=== PATIENT | male | born 1955 | race Caucasian/White ===

== ENCOUNTER 2017-04-06 03:23 | Inpatient (IN) | payer OTHER ==
[~2017-04-06] VITALS: Ht 190.5 cm; Wt 132.4 kg
[~2017-04-06 03:23] MED LIST: ALDACTONE25 MG PO; AMIODARONE HCL200 M1 PO; ASPIRIN81 M4 PO; ATORVASTATIN CA40 M1 PO; ATORVASTATIN CA80 M1 PO; CARDIZEM CD180 MG PO; COLACE100 M1 PO; ELIQUIS5 M1 PO; HYDRALAZINE HCL50 MG PO; LISINOPRIL HCTZ1 TAB PO; LOSARTAN POTAS100 M1 PO; LOSARTAN POTAS100 MG PO; MEDROL DOSEPAK1 PAC PO; OMEPRAZOLE D/R20 MG PO; PACERONE200 M1 PO; PERCOCET 325 MG1 TA2 PO; PERCOCET 5-3251 EACH PO; SPIRONOLACTONE1 EACH PO; SPIRONOLACTONE25 MG PO; TOPROL XL 25MG25 MG PO; TOPROL XL100 M1 PO; TOPROL XL50 M1 PO; VALIUM5 M1 PO; VALIUM5 M2 PO; ZOCOR40 M1 PO
--- NOTE | 2017-04-06 11:12 | Admission Core Measures ---
Acute Coronary Syndrome (CM) ACS Core Measures Acute Coronary Syndrome Diagnosis No Congestive Heart Failure (NEW) CHF Core Measures Congestive Heart Failure Diagnosis No Cerebrovascular Accident (NEW) CVA Core Measures CVA/TIA Diagnosis No Venous Thromboembolism VTE Core [place] (View Protocol) VTE Risk Factors Surgery No Mechanical VTE Prophylaxis d/t N/A MechProphylax Ordered No VTE Pharm Prophylaxis d/t NA PharmProphylax ordered Problem List As ranked by this Provider includes Assessment & Plan 1. Status post total knee replacement, right HOME MEDS Home Med List Amiodarone (Cordarone) 200 MG TAB 1 TAB PO DAILY AFIB (Reported) Apixaban (Eliquis) 5 MG TABLET 5 MG PO BID afib Aspirin (Aspirin*) 81 MG TAB.CHEW 81 MG PO DAILY heart Atorvastatin Calcium 40 MG TABLET 1 TAB PO DAILY CHOLESTEROL (Reported) Metoprolol Succ XL (Toprol XL) 100 MG TAB.ER.24H 100 MG PO DAILY AFIB Omeprazole 20 MG ECC 1 CAP PO DAILY GI (Reported) Spironolact/Hydrochlorothiazid (Spironolactone-Hctz 25-25 Tab) 25 MG-25 MG TABLET 1 TAB PO DAILY BP (Reported)
--- NOTE | 2017-04-06 11:19 | Surgical Discharge Summary ---
Visit Information Visit Dates Admission Date: 04/06/17 Discharge Date: 04/09/17 History of Present Illness Chief Complaint: Join pain - See H and P Medical History Neurological: DISCECTOMY LUMBAR LAMINECTOMY Cardiovascular: hypertension, hyperlipidemia Respiratory: obstructive sleep apnea Gastrointestinal: GERD, COLON RESECTION Musculoskeletal: L KNEE REPLACEMENT L FOOT DROP History of MRSA: No History of VRE: No History of CDIFF: No Influenza Vaccine: 01/20/06 Surgical History Pertinent Surgical History: non-contributory Family History Relations & Conditions If Any: FATHER FH: myocardial infarction, Onset: 60+. FH: prostate cancer Psychosocial History Who Do You Live With? Spouse Services at Home: None What is Your Primary Language? Georgian Review of Systems: See H and P Hospital Course Course Attending Physician: Reshma LUNANikita Primary Care Physician: Keenan LUNA,[facility] Course: Pt was admitted on 04/06 after undergoing a right tkr by Dr Justice. He tolerated the procedure well and was brought to the recovery room in good condition. Over the next couple of days he worked with PT and was WBAT. His pain was managed with oral pain medication and he was able to void spontaneously. He was deemed stable for discharge home with services. Allergies: Coded Allergies: ampicillin (From UNASYN) (UNKNOWN 04/03/17) PER MICCI IN SDS ON 04/03/17: PT NOT SURE OF RXN TO UNASYN. RXN WAS MILD AND NOT ANAPHYLAXIS (SJS) sulbactam (From UNASYN) (UNKNOWN 04/03/17) PER MICCI IN SDS: RXN WAS NOT ANAPHYLAXIS (SJS) Significant Procedures: R TKR -see operative report Disposition Summary Disposition Principal Diagnosis: OA/DJD Additional Diagnosis: a fib, htn Discharge Disposition: home health services Discharge Instructions General Discharge Information Code Status: Full Code Patient's Diet: Heart Healthy Patient's Activity: WBAT Follow-Up Instructions/Appts: See pre printed sheet Medications at Discharge Discharge Medications: Continue taking these medications: Omeprazole (Omeprazole) 20 MG ECC 1 Capsule ORAL DAILY Qty = 90 Metoprolol Succ XL (Toprol XL) 100 MG TAB.ER.24H 100 Milligram ORAL DAILY Qty = 30 Comments: Last Taken: 01/21/16 Time: 9:30AM Amiodarone (Cordarone) 200 MG TAB 1 Tablet ORAL DAILY Spironolact/Hydrochlorothiazid (Spironolactone-Hctz 25-25 Tab) 25 MG-25 MG TABLET 1 Tablet ORAL DAILY Atorvastatin Calcium (Atorvastatin Calcium) 40 MG TABLET 1 Tablet ORAL DAILY Instructions: WITH DINNER Apixaban (Eliquis) 5 MG TABLET 5 Milligram ORAL TWICE DAILY Qty = 30 Comments: DECREASE DOSE TO 2.5 MG TWICE DAILY (ONE HALF TAB) FOR ONE WEEK THROUGH , THEN RESUME NORMAL DOSE OF 5MG TWICE DAILY ON 04/14. This prescription has been renewed Start taking the following new medications: Docusate Sodium (Colace) 100 MG CAPSULE 1 Capsule ORAL TWICE DAILY Qty = 14 No Refills Polyethylene Glycol 3350 (Miralax) 17 GRAM POWD.PACK 1 Packet ORAL DAILY Qty = 7 No Refills Instructions: dissolve in water Oxycodone HCl/Acetaminophen (Percocet 5-325 MG Tablet) 5 MG-325 MG TABLET 1-2 Tablet ORAL EVERY 4-6 HOURS as needed for PAIN Qty = 36 No Refills The following medications have been changed: Old: Aspirin (Aspirin*) 81 MG TAB.CHEW 81 Milligram ORAL DAILY Qty = 30 New: Aspirin (Aspirin*) 81 MG TAB.CHEW 81 Milligram ORAL TWICE DAILY Qty = 60 Comments: Increase to one tab twice daily (every 12 hours) for 30 days through . Then resume dose of one tab daily Copies To: Nikita Justice MD
[2017-04-06] MEDS ORDERED: MS CONTIN15 M3 PO (11:25)
[2017-04-06] MEDS ORDERED: MIRALAX17 G1 PO (11:25)
[2017-04-06] MEDS ORDERED: COLACE100 M1 PO (11:25)
[2017-04-06] MEDS ORDERED: DILAUDID4 M1 PO (11:25)
--- NOTE | 2017-04-06 11:28 | Patient Discharge Instructions ---
Discharge Instructions General Discharge Information You were seen/treated for: Joint pain You had these procedures: total knee replacement Watch for these problems: temp>101, increased redness or drainage of wounds Other wound care: Keep incision clean and dry, may shower but no bathing or soaking Special Instructions: Decrease dose of eliquis to 2.5mg (one half tab) twice daily for one week through 04/13. Then resume normal dose of 5mg twice daily. Increase dose of aspirin to 81mg twice daily for one month through 05/07. Then resume normal dose of one tablet daily on 05/08. Diet Continue normal diet: Yes Activity Activity Self Limited: Yes Activity Limited to: Weight bear as tolerated Acute Coronary Syndrome Inclusion Criteria At DC or during hospital stay patient has or had the following: Discharge Core Measures Meds if any: Prescribed or Continued at Discharge Meds if any: NOT Prescribed or Continued at Discharge Congestive Heart Failure Inclusion Criteria At DC or during hospital stay patient has or had the following: Discharge Core Measures Meds if any: Prescribed or Continued at Discharge Meds if any: NOT Prescribed or Continued at Discharge Cerebrovascular accident Inclusion Criteria At DC or during hospital stay patient has or had the following: CVA/TIA Diagnosis No Discharge Core Measures Meds if any: Prescribed or Continued at Discharge Meds if any: NOT Prescribed or Continued at Discharge Venous thromboembolism Discharge Core Measures - Per Current guidelines, there needs to be overlap - treatment for the first 5 days of Warfarin therapy. - If discharged on Warfarin prior to 5 days of - overlap therapy, the patient will need to be - assessed for post discharge needs including - *Post discharge parental anticoagulation - *Warfarin and/or parental anticoagulation education - *Follow up date to check INR post discharge Meds if any: Prescribed or Continued at Discharge Note: Overlap Therapy is Warfarin and Anticoagulant Meds if any: NOT Prescribed or Continued at Discharge
--- NOTE | 2017-04-06 15:35 | Operative Report ---
Operative/Inv Procedure Report Surgery Date: 04/06/17 Name of Procedure: Right total knee replacement Pre-Operative Diagnosis: Primary right knee DJD Post-Operative Diagnosis: Same Estimated Blood Loss: 50ml to 100ml Surgeon/Rn Baby: Reshma LUNA,Nikita Davis Anesthesia: block Operative/Procedure Note Note: Description of Procedure: The patient was taken to the operating room and positively identified. After induction of spinal anesthesia and administration of appropriate pre-operative antibiotics, the patient was positioned supine on the operating room table and all bony prominences were well padded. A well-padded pneumatic tourniquet was placed on the right upper thigh. After performing a surgical timeout, the right lower extremity was prepped and draped in the usual sterile fashion. After exsanguination with Esmarch the tourniquet was inflated to 250mm of mercury. A standard medial parapatellar approach was made to the knee. This was carried down through skin and subcutaneous tissue to the level of the fascia. Meticulous hemostasis was maintained with Bovie electrocautery. The extensor mechanism and patellar retinaculum were opened sharply and the patella was everted. The infrapatellar fat was resected in order to improve exposure. Osteophytes were trimmed from the patella and femoral condyles and the patella was re-everted and tucked laterally. A medial release was performed and the cruciate ligaments were resected. The tibia was then subluxed anteriorly. Utilizing the appropriate extra-medullary guide, the proximal tibia was trimmed perpendicular to the long axis of the tibial shaft. Attention was then turned to the femur. After opening the medullary canal, the distal femoral cut was made in 6 degrees of valgus utilizing the appropriate intra-medullary guide. The extension gap was checked and found to be appropriate. The femur was then sized and the remainder of the femoral cuts were made with a size 7 4-in-1 femoral cutting guide. The flexion gap was checked and found to be symmetric and appropriate. The knee was then trialed with a size 7 femoral component, a size 7 tibial component and a size 13 mm TS polyethylene insert. The patella was trimmed to accept an A 38 patella. This yielded excellent range of motion, stability and patellar tracking. All trial components were removed and the knee was copiously irrigated with sterile saline. All components were cemented into place with Mike Simplex cement. All the components were of the Mike Triathlon knee system of the above stated sizes. The knee was again irrigated after cementation. The extensor mechanism and patellar retinaculum were repaired using interrupted #1 vicryl suture. The skin was re-approximated with 2-0 vicryl and closed with jordan. A sterile dressing was applied, the tourniquet was deflated, the patient was awakened and taken to the recovery room in satisfactory condition.
[2017-04-06 16:03] VITALS: BP 110/58
--- NOTE | 2017-04-06 17:26 | PN- Orthopedic ---
Subjective Subjective: POC feeling well, some nausea, no vomiting. awaiting pt eval/oob, dtv postop, awaiting dinner. no cp/sob. pain well controlled Objective Vital Signs and I&Os see emr Physical Exam: geb- nad card-s1s2 rrr pulm- ctab abd- soft nt ext- rle w dayan wrap, dressing cdi, ice to knee, gross toe/ankle sensation intact /equal bl, palp dp pulse, +dorsi/plantar flexion bl Assessment/Plan Assessment/Plan A- POD0 sp R TKR, stable, awaiting pt eval/oob/void/po intake postop. P- prn pain meds asa 81mg bid, eliquis 2.5mg bid, alps wbat, pt, oob hl once voids, tolerates po i&os dsg change pod2 home meds diet as tolerated will dw attending Core Measures Venous Thromboembolism VTE Risk Factors Surgery No Mechanical VTE Prophylaxis d/t N/A MechProphylax Ordered No VTE Pharm Prophylaxis d/t NA PharmProphylax ordered
[2017-04-06] MEDS ORDERED: ASPIRIN81 M4 PO (19:33)
[2017-04-06] MEDS ORDERED: ELIQUIS5 M1 PO (19:35)
[2017-04-06 20:06] VITALS: BP 100/70
[2017-04-07 00:11] VITALS: BP 90/54
[2017-04-07 04:00] VITALS: BP 118/62
--- NOTE | 2017-04-07 07:27 | PN- Orthopedic ---
Subjective Subjective: Patient c/o post op pain which has improved since yesterday. Denies any numbness /tingling. Per nursing, patient was bladder scanned and straight cathed 900 cc this morning. He denies ambulating with PT yet. Objective Vital Signs and I&Os Vital Signs Date Time Temp Pulse Resp B/P B/P Pulse O2 O2 Flow FiO2 Mean Ox Delivery Rate 04/07 0400 97.9 63 20 118/62 95 Room Air 04/07 0011 97.7 64 20 90/54 95 Room Air 04/06 2005 97.8 60 20 100/70 94 Room Air 04/06 1603 97.6 60 20 110/58 96 Room Air Intake & Output 04/07 1600 04/07 0800 04/07 0000 04/06 1600 04/06 0800 04/06 0000 Intake Total 740 Output Total Balance 740 Intake, IV 600 Intake, Oral 140 Patient 292 lb Weight Weight Reported by Patient Measurement Method Physical Exam: Gen - resting comfortably awake an alert in NAD Cardiac - S1S2 noted, RRR Lungs - CTAB Ext - RLE dressing c/d/i with ice and OnQ in place, moves all extremities, motor and sensory intact, alps in place, no edema or calf tenderness B/L Current Medications: Current Medications Sig/Tiffany Start time Last Medication Dose Route Stop Time Status Admin Acetaminophen 1,000 MG Q6P PRN 04/06 1630 AC 04/07 IV 0130 Acetaminophen 650 MG Q4P PRN 04/06 1630 AC PO Acetaminophen 0 .STK-MED ONE 04/06 1008 DC PO Acetaminophen 975 MG ONCE 04/06 0000 DC PO 04/06 2359 Amiodarone HCl 200 MG DAILY 04/07 1000 DC PO Amiodarone HCl 200 MG DAILY 04/07 1000 AC PO Apixaban 2.5 MG BID 04/06 2200 AC PO Aspirin 81 MG DAILY 04/07 1000 DC PO Aspirin 81 MG BID 04/06 2200 AC PO Atorvastatin Calcium 40 MG 1700 04/07 1700 AC PO Atorvastatin Calcium 40 MG DAILY 04/07 1000 DC PO Cefazolin Sodium 3,000 MG Q8H 04/07 0600 DC 04/07 Sodium Chloride 100 ML IV 04/07 0659 0619 Cefazolin Sodium 3,000 MG Q8H 04/06 2000 DC 04/06 Sodium Chloride 100 ML IV 04/07 0459 2226 Cefazolin Sodium 3,000 MG ONCE 04/06 0000 DC IV 04/06 2359 Dextrose/Sodium 1,000 ML .[id number] 04/06 1630 AC 04/06 Chloride IV 2025 Docusate Sodium 100 MG BID 04/06 2200 AC 04/06 PO 222 Fentanyl Citrate 100 MCG .STK-MED ONE 04/06 1319 DC IM 04/06 1320 Hydrochlorothiazide 25 MG DAILY 04/07 1000 DC PO Hydrochlorothiazide 25 MG DAILY 04/07 1000 AC PO Hydromorphone HCl 2 MG Q4P PRN 04/06 1630 AC 04/07 PO 0400 Hydromorphone HCl 4 MG Q4P PRN 04/06 1630 AC PO Hydromorphone HCl 2 MG .STK-MED ONE 04/06 1451 DC IM 04/06 1452 Hydromorphone HCl 2 MG .STK-MED ONE 04/06 1407 DC IM 04/06 1408 Hydromorphone HCl 2 MG .STK-MED ONE 04/06 1328 DC IM 04/06 1329 Influenza Virus 0.5 ML ONCE ONE 04/07 1000 AC Vaccine IM 04/07 1001 Meperidine HCl 50 MG .STK-MED ONE 04/06 1328 DC IM 04/06 1329 Metoprolol Succinate 100 MG DAILY 04/07 1000 DC PO Metoprolol Succinate 100 MG DAILY 04/07 1000 AC PO Midazolam HCl 6 MG .STK-MED ONE 04/06 1046 DC IM 04/06 1047 Morphine Sulfate 2 MG Q2P PRN 04/06 1630 AC 04/07 IV 0640 Morphine Sulfate 10 MG .STK-MED ONE 04/06 1105 DC IV 04/06 1106 Omeprazole 20 MG DAILY 04/07 1000 DC PO Omeprazole 20 MG DAILY 04/07 1000 AC PO Ondansetron HCl 4 MG Q6P PRN 04/06 1630 AC 04/06 IV 1743 Oxycodone HCl 0 .STK-MED ONE 04/06 1009 DC PO Oxycodone HCl 10 MG ONCE 04/06 0000 DC PO 04/06 2359 Polyethylene Glycol 17 GM DAILY 04/07 1000 AC PO Ropivacaine 500 ML ONCE ONE 04/06 1045 DC ON-Q Ball 1 BAG INJ 04/06 1046 Spironolactone 25 MG DAILY 04/07 1000 DC PO Spironolactone 25 MG DAILY 04/07 1000 AC PO Tranexamic Acid 2,000 MG .STK-MED ONE 04/06 1045 DC IV 04/06 1046 Assessment/Plan Assessment/Plan 61 M with h/o afib, [place], hld, htn who is POD 1 s/p R TKR with postop pain, urinary retention requiring straight cath, awaiting PT eval PT eval, OOB Cont reg diet, d/c IVF Cont pain regimen - increase OnQ pump if pain worsens GI ppx on board DVT ppx on board - eliquis bid, alps Home meds on board Bowel regimen on board F/u labs Monitor UO - if unable and UO greater than 300cc, insert bates Dressing change POD2 Anticipate d/c hhs in 1-2 days Core Measures Venous Thromboembolism VTE Risk Factors Surgery No Mechanical VTE Prophylaxis d/t N/A MechProphylax Ordered No VTE Pharm Prophylaxis d/t NA PharmProphylax ordered
[2017-04-07 11:40] VITALS: BP 130/70
[2017-04-07 12:20] LABS: ABSOLUTE BASOPHIL COUNT 0 /CUMM (0.0-0.2); ABSOLUTE EOSINOPHIL COUNT 0 /CUMM (0.0-0.7); ABSOLUTE GRANULOCYTE CT 9.7 /CUMM (1.4-6.5); ABSOLUTE LYMPH COUNT 1.3 /CUMM (1.2-3.4); ABSOLUTE MONOCYTE COUNT 1.6 /CUMM (0.10-0.60); BASOPHIL % 0.4 % (0.0-2.0); EOSINOPHIL % 0.1 % (0-5); GRANULOCYTE % 76.7 % (42.2-75.2); HEMATOCRIT 36.3 % (42-52); MEAN CORPUSCULAR HGB 31.1 PG (27.0-31.0); MEAN CORPUSCULAR VOLUME 94.6 FL (80.0-94.0); PLATELET COUNT 265 /CUMM (130-400); RBC DISTRIBUTION WIDTH 14.9 % (11.5-14.5); RED BLOOD CELL CT 3.84 /CUMM (4.70-6.10); WHITE BLOOD CELL COUNT 12.6 /CUMM (4.8-10.8)
[2017-04-07 14:18] VITALS: BP 110/75
[2017-04-07] MEDS ORDERED: PERCOCET 5-3251 EACH PO (16:24)
[2017-04-07 19:00] VITALS: BP 112/58
[2017-04-08 03:00] VITALS: BP 114/64
[2017-04-08 06:35] VITALS: BP 100/64
[2017-04-08 11:15] VITALS: BP 110/72
--- NOTE | 2017-04-08 13:27 | PN- Orthopedic ---
Subjective Subjective: pod#2 s/p right tka no major issues overnight denies cp, sob, no n+v with diet has been oob with pt Objective Vital Signs and I&Os Vital Signs Date Time Temp Pulse Resp B/P B/P Pulse O2 O2 Flow FiO2 Mean Ox Delivery Rate 04/08 1115 98.0 82 20 110/72 95 04/08 0950 75 108/68 04/08 0949 75 108/68 04/08 0635 99.5 76 20 100/64 94 04/08 0300 99.6 88 20 114/64 90 Room Air 04/08 0000 90 CPAP 04/07 1900 97.7 76 20 112/58 94 Room Air 04/07 1418 99.2 74 18 110/75 94 Intake & Output 04/08 1600 04/08 0800 04/08 0000 04/07 1600 04/07 0800 04/07 0000 Intake Total 251 096 2611 750 740 Output Total 275 725 745 228 0783 100 Balance 225 -625 -250 400 -275 640 Intake, IV 0 200 700 600 Intake, Oral 500 100 800 50 140 Number 0 0 Bowel Movements Output, Urine 275 725 923 420 9341 100 Patient 292 lb Weight Weight Reported by Patient Measurement Method Physical Exam: cv: rrr lungs: clear abd: soft, +bs ext: drsg changed, wound c/d/i no calf tnederness bilat distal cms intact Assessment/Plan Assessment/Plan ortho stable plan cont oob with pt titrate pain meds home d/c planning Core Measures Venous Thromboembolism VTE Risk Factors Surgery No Mechanical VTE Prophylaxis d/t N/A MechProphylax Ordered No VTE Pharm Prophylaxis d/t NA PharmProphylax ordered
[2017-04-08 14:36] VITALS: BP 110/63
[2017-04-08 17:41] VITALS: BP 122/80
[2017-04-08 22:16] VITALS: BP 130/70
[2017-04-09 06:46] VITALS: BP 120/70
--- NOTE | 2017-04-09 08:43 | PN- Orthopedic ---
Subjective Subjective: Patient states he feels well, pain is well controlled, ambulating with PT, not cleared on stairs yet, tolerating diet no nausea or vomiting, voiding spontanously an passing gas. Denies moving his bowel, requesting a suppository. Objective Vital Signs and I&Os Vital Signs Date Time Temp Pulse Resp B/P B/P Pulse O2 O2 Flow FiO2 Mean Ox Delivery Rate 04/09 0908 98.4 83 20 120/70 04/09 0908 98.4 83 20 120/70 04/09 0646 98.4 83 20 120/70 96 Room Air 04/08 2216 97.8 82 20 130/70 94 04/08 1741 98.6 85 122/80 04/08 1600 96 Room Air 04/08 1436 98.1 84 18 110/63 94 04/08 1115 98.0 82 20 110/72 95 04/08 0950 75 108/68 04/08 0949 75 108/68 Intake & Output 04/09 1600 04/09 0800 04/09 0000 04/08 1600 04/08 0800 04/08 0000 Intake Total 360 1400 100 Output Total 1050 800 875 725 250 Balance -690 -800 525 -625 -250 Intake, IV 0 Intake, Oral 360 1400 100 Number 0 Bowel Movements Output, Urine 1050 800 875 725 250 Physical Exam: Gen - resting comfortably awake an alert in NAD Cardiac - S1S2 noted, RRR Lungs - CTAB Ext - Right knee dressing c/d/i with ice, mildly swollen, no erythema or drainage noted, moves all extremities, redressed with gauze, motor and sensory intact, alps in place, no edema or calf tenderness B/L Current Medications: Current Medications Sig/Tiffany Start time Last Medication Dose Route Stop Time Status Admin Acetaminophen 1,000 MG Q6P PRN 04/06 1630 AC 04/09 IV 0912 Acetaminophen 650 MG Q4P PRN 04/06 1630 AC PO Amiodarone HCl 200 MG DAILY 04/07 1000 AC 04/09 PO 0908 Apixaban 2.5 MG BID 04/06 2200 AC 04/09 PO 0908 Aspirin 81 MG BID 04/06 2200 AC 04/09 PO 0908 Atorvastatin Calcium 40 MG 1700 04/07 1700 AC 04/08 PO 1739 Bisacodyl 10 MG ONCE ONE 04/09 0915 UNVr DC 04/09 0916 Docusate Sodium 100 MG BID 04/06 2200 AC 04/09 PO 0909 Hydrochlorothiazide 25 MG DAILY 04/07 1000 AC 04/09 PO 0908 Influenza Virus 0.5 ML .STK-MED ONE 04/08 2359 DC Vaccine IM 04/09 0000 Metoprolol Succinate 100 MG DAILY 04/07 1000 AC 04/09 PO 0908 Morphine Sulfate 2 MG Q2P PRN 04/06 1630 AC 04/07 IV 1348 Omeprazole 20 MG DAILY 04/07 1000 AC 04/09 PO 0908 Ondansetron HCl 4 MG Q6P PRN 04/06 1630 AC 04/06 IV 1743 Oxycodone/ 1 TAB Q4P PRN 04/07 0945 AC 04/09 Acetaminophen PO 0604 Oxycodone/ 2 TAB Q4P PRN 04/07 0945 AC 04/08 Acetaminophen PO 0951 Patient Medication 1 ED ONE ONE 04/08 1100 DC 04/08 Teaching ED 04/08 1101 1529 Polyethylene Glycol 17 GM DAILY 04/07 1000 AC 04/09 PO 0909 Spironolactone 25 MG DAILY 04/07 1000 AC 04/09 PO 0908 Assessment/Plan Assessment/Plan 61 M with h/o afib, [place], hld, htn who is POD 3 s/p R TKR who is recovering well, urinary retention resolved, awaiting PT clearance Reg diet Pain regimen prn OOB ambulation, WBAT GI ppx on board DVT ppx on board - eliquis 2.5 bid x 1 week, resume 5 mg bid on 04/13/[address] Home meds on board Bowel regimen on board, add ducolax supp now Cont dry daily dressing changes Anticipate d/c [facility] today pending PT clearance Core Measures Venous Thromboembolism VTE Risk Factors Surgery No Mechanical VTE Prophylaxis d/t N/A MechProphylax Ordered No VTE Pharm Prophylaxis d/t NA PharmProphylax ordered
[2017-04-09] MEDS ORDERED: PERCOCET 5-3251 EACH PO (10:26)
[2017-04-09] MEDS ORDERED: ELIQUIS5 M1 PO (11:25)
[2017-04-09 13:07] VITALS: BP 118/70
[2017-04-09 15:15] VITALS: BP 110/70
== END 2017-04-09 15:25 | disposition home health service (06) | DRG 470 ==
LOC: SDA 03:23 → ENRESERV 15:07 → ENTRNSPT 15:51 → EDTRNSPTSTS 15:52 → 2NA 16:04 → CMPTRNSPT 16:13 → ENPENDDIS 04-09 09:37 → ENTRNSPT 04-09 14:58 → EDTRNSPT 04-09 15:14 → EDTRNSPTSTS 04-09 15:14 → CMPTRNSPT 04-09 15:19 → 2NA 04-09 15:25
PROVIDERS: Physician Assistant Surgical
PROC: 0SRC0J9 Replacement of Right Knee Joint with Synthetic Substitute, Cemented, Open Approach (ICD-10-PCS; principal; 2017-04-06)
DX: M17.11 Unilateral primary osteoarthritis, right knee (principal); I48.91 Unspecified atrial fibrillation; M25.761 Osteophyte, right knee; G47.33 Obstructive sleep apnea (adult) (pediatric); I10 Essential (primary) hypertension; E78.5 Hyperlipidemia, unspecified; R33.9 Retention of urine, unspecified
CPT/HCPCS: 2NAP; 82436; 97110-GO; 97116-GO; 97161-GP; 97530-GO; C1713; J0131; J0690; J2405; J2795; J3490; J7042; J7508; Q2036